=== PATIENT | male | born 1975 | race African-American/Black ===

== ENCOUNTER 2017-06-30 12:47 | Emergency (ER) | payer MEDICARE, MEDICAID ==
[~2017-06-30] VITALS: Ht 172.7 cm; Wt 68.2 kg
[~2017-06-30 12:47] MED LIST: FLUO10CA25; QUET25TA
[2017-06-30 13:08] VITALS: BP 118/85
== END 2017-06-30 19:30 | disposition left against medical advice (07) ==
LOC: ER 13:22
DX: Z53.21 Procedure and treatment not carried out due to patient leaving prior to being seen by health care provider (principal)